=== PATIENT | female | born 1995 | race Caucasian/White ===

== ENCOUNTER 2019-05-12 10:12 | Emergency (ER) | payer MEDICAID, OTHER ==
[~2019-05-12] VITALS: Ht 172.7 cm; Wt 60.0 kg
[2019-05-12 11:03] LABS: BILIRUBIN,URINE NEGATIVE (NEGATIVE); CLARITY,URINE CLEAR; COLOR,URINE YELLOW; GLUCOSE, URINE (UA) NEGATIVE (NEGATIVE); KETONES,URINE NEGATIVE (NEGATIVE); LEUKOCYTE ESTERASE ,URINE 2+ (NEGATIVE); NITRITE,URINE NEGATIVE (NEGATIVE); PH,URINE 7 (5-9); PROTEIN,URINE NEGATIVE (NEGATIVE)
[2019-05-12 11:27] LABS: BACTERIA,URINE MODERATE /HPF; RBC,URINE RARE /HPF
[2019-05-12] MEDS ORDERED: SULF1TAB35 PO (11:49)
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
[2019-05-12 12:00] VITALS: BP 120/72
--- NOTE | 2019-05-17 12:12 | NUR ---
Pt called requesting information from prior visit.
== END 2019-05-12 12:08 | disposition home or self-care (01) ==
LOC: EDUNIT# 10:12 → ER 10:15
DX: N39.0 Urinary tract infection, site not specified (principal); T74.21XA Adult sexual abuse, confirmed, initial encounter; Y07.9 Unspecified perpetrator of maltreatment and neglect
CPT/HCPCS: 36415; 81000; 86780; 87077; 87088; 87186; 87210; 87491; 87591; 99282

== ENCOUNTER → 2019-05-12 | Outpatient (CLI) | payer SELFPAY ==
[~2019-05-12] MED LIST: SULF1TAB35 PO
== END ==
LOC: FNS 08:57
PROVIDERS: ATTEND Emergency Medicine
DX: Z02.89 Encounter for other administrative examinations (principal)